=== PATIENT | female | born 1945 | race Caucasian/White ===

== ENCOUNTER 2017-01-24 21:07 | Emergency (ER) | payer BC, MEDICAID ==
[~2017-01-24] VITALS: Ht 160 cm; Wt 64.5 kg
[~2017-01-24 21:07] MED LIST: ASPI81TA3 PO; HTN MED
[2017-01-24 21:11] VITALS: Ht 160 cm; Wt 64.5 kg
--- NOTE | 2017-01-24 22:17 | ERD ---
ER Documentation Chief Complaint Date/Time DATE: 01/24/17 TIME: 22:12 Chief Complaint mechanical fall earlier today;pain on left forearm(pt has brace on left arm HPI this right handed today 0900m am while cooking black beans in a pressure cooker , pot fell over and exploded, pt reports sliping in the water and hitting her head and and falling onto left wrist denies LOC, change in vision or change in behavior left wrist obvious deformity , pain 8-10/10 on pain scale. symptoms worse in dependent position . pt took IBU ROS All systems reviewed and are negative except as per history of present illness. Medications Home Meds Active Scripts Hydrocodone/Acetaminophen ([place] 5-325 Tablet) 1 Each Tablet, 1 TAB PO Q6H Y for PAIN, #14 TAB Prov:GIANCARLONOE 01/25/17 Reported Medications [Htn Med] No Conflict Check, DAILY 01/18/12 Aspirin* (Aspirin* Chew) 81 Mg Tab.chew, 81 MG PO DAILY 01/18/12 Allergies Allergies: Coded Allergies: No Known Allergy (Unverified , 01/24/17) PMhx/Soc History of Surgery: Yes (, RT EYE) Anesthesia Reaction: No Hx Neurological Disorder: No Hx Respiratory Disorders: No Hx Cardiac Disorders: Yes (HTN) Hx Psychiatric Problems: No Hx Miscellaneous Medical Probl: No (OSTEOPORSIS/OA) Hx Alcohol Use: No Hx Substance Use: No Hx Tobacco Use: No Smoking Status: Never smoker Physical Exam Vitals Vital Signs Date Time Temp Pulse Resp B/P Pulse Ox O2 Delivery O2 Flow Rate FiO2 01/24/17 21:11 98.2 91 20 142/85 97 Physical Exam Const: Well-appearing, well-hydrated, obvious discomfort no acute distress Head: Atraumatic Eyes: Normal Conjunctiva, PERRLA, EOMI ENT: Normal External Ears, Nose and Mouth, mucous membranes. Neck: Resp: Respirations even and unlabored no respiratory distress Cardio: Abd: Skin: Back: Upper Extremity -left: Skin: No laceration, or obvious forearm deformity on left Compartments: Soft Motor: Full active range of motion shoulder/elbow, patient able to supinate and pronate with pain, abnormal range of motion Sensation: Intact shoulder/pinky/middle finger/thumb web space Bones: Tender forearm/wrist Snuffbox: Nontender Joints: No effusion Pulses/Perfusion: [3+ radial, Capillary refill < 2 seconds] Neuro: M/S: Alert and oriented Face: EOMI, face and pharynx with normal sensation and function Motor: Normal strength throughout Sensation: Normal sensation throughout Speech: Normal Cerebel: Normal coordination Normal gait DTR: 2+ and symmetric upper/lower extremities Psych: Normal Mood and Affect Results 24 hrs Current Medications Medications (Trade) Dose Ordered Sig/Frank Route PRN Reason Start Time Stop Time Status Last Admin Dose Admin Acetaminophen/ Hydrocodone Bitart ([place] (5/325)) 1 tab ONCE ONCE PO 01/24/17 22:30 01/24/17 22:31 DC 01/24/17 22:27 Procedures/MDM PROCEDURE: XR Left Wrist. CLINICAL INDICATION: Trauma. Pain. TECHNIQUE: AP, lateral and oblique views of the left wrist were performed. COMPARISON: No prior studies are available for comparison. FINDINGS: There is a minimally displaced fracture from the distal diaphysis through the metaphysis of the radius.. There is an ossific density peripheral to the trapezium suggestive of old trauma. There is degenerative changes of the first digit carpal metacarpal joint. Joint relationships are maintained. Bone mineralization is otherwise within normal limits. Soft tissues are unremarkable. IMPRESSION: 1. Minimally displaced distal radial diaphyseal-metaphyseal fracture.. 2. Degenerative changes first digit carpometacarpal joint with adjacent soft tissue calcification, suggesting prior trauma. Electronically viewed and signed by .Soham Saenz MD, MD on 01/25/2017 00:04 PROCEDURE: Left forearm CLINICAL INDICATION: Pain status post fall TECHNIQUE: AP and lateral films COMPARISON: None available FINDINGS: The appearance of a cortical buckling impaction type, closed fracture of the left distal radius is noted without evidence for displacement of fracture fragments. Generalized osteopenia is noted. Degenerative changes are noted of the trapezium and first metacarpal joint . Mild soft tissue swelling is present without radiodense foreign bodies. IMPRESSION: 1. Acute, closed, impaction type fracture of the left distal radius. 2. Generalized osteopenia 3. Osteoarthritis as noted above. Electronically viewed and signed by .Roslyn Mcneill MD, MD on 01/25/2017 00: 04 This pleasant 71-year-old female presents to emergency department after mechanical slip and fall in kitchen. Patient reportedly slipped after her pressure cooker full of black beans exploded onto the floor. Patient reports left wrist pain. Injury occurred early this morning. Patient reports possibly hitting her head without loss of consciousness. Without change in vision, behavior or headache CAT scan will not be ordered. No suspicion for intracranial bleed, subdural hematoma. Patient treated with [place], x-ray findings support 1. Acute, closed, impaction type fracture of the left distal radius. 2. Generalized osteopenia. Patient is placed in a sugar tong splint, sling, prescription for [place]. This case discussed with supervising physician Dr. Sam, patient will follow-up with primary catering assistant. [facility] [place] given. Return to emergency department for numbness or tingling to fingers. Pain worse with splint. I feel the patient is stable for discharge at this time. I have discussed results, examination findings, the treatment plan with the patient and family present prior to discharge. Indications for emergent reevaluation, side effects of medication were also discussed. All questions were answered. Patient verbalizes understanding and agrees with plan of care. Departure Diagnosis: Primary Impression: Radial fracture Encounter type: initial encounter Radius location: distal Fracture type: closed Fracture morphology: unspecified fracture morphology Laterality: left Qualified Code: S52.502A - Closed fracture of distal end of left radius, unspecified fracture morphology, initial encounter Condition: Good Patient Instructions: Leg or Arm Fractures Additional Instructions: Thank you for for coming to [facility] for your care today. Please ask your nurse or provider if you have questions about your care today and do not leave until all your questions have been answered. Please use any medications given as directed and follow-up with your doctor (or the doctor you were referred to) in the next 2-3 days. If you do not have a primary care doctor you may follow up [place] the [facility] [place] (listed below). You may also use motrin and tylenol as needed for fever and/or pain unless instructed otherwise by your provider or nurse. Indications for more urgent follow-up have been discussed, but you may return to the Emergency Department at ANY time for any worrisome or worsening symptoms. If you have abdominal pain, please know that no test or exam you received is perfect and you should follow up within 8 hours for continued pain. If you had any imaging studies today, such as an X-Ray or CT Scan, these studies will be reviewed later by a radiologist. You will be called if there are important findings that were not identified today, so make sure the contact information you provided at registration is correct. If you received any narcotic pain control medicine today, such as Vicodin, Morphine or Dilaudid, your coordination and judgment may be affected for a number of hours. Please do not drive or operate heavy machinery, and you may want someone to assist you at home. If you were given a prescription for narcotic medication, be aware that it is very addictive- use sparingly and only if necessary. NOE MONDRAGON Jan 24, 2017 22:17
[2017-01-24] MEDS ORDERED: HYDROCODONE/APAP (5/325) TAB PO ONE (22:30)
--- NOTE | 2017-01-25 00:04 | RADRPT ---
PROCEDURE: Left forearm CLINICAL INDICATION: Pain status post fall TECHNIQUE: AP and lateral films COMPARISON: None available FINDINGS: The appearance of a cortical buckling impaction type, closed fracture of the left distal radius is n oted without evidence for displacement of fracture fragments. Generalized osteopenia is noted. Deg enerative changes are noted of the trapezium and first metacarpal joint . Mild soft tissue swelling is present without radiodense foreign bodies. IMPRESSION: 1. Acute, closed, impaction type fracture of the left distal radius. 2. Generalized osteopenia 3. Osteoarthritis as noted above. RPTAT: HDC .Roslyn Mcneill MD, MD Date Time Electronically viewed and signed by .Roslyn Mcneill MD, on 01/25/2017 00:04 .C/
--- NOTE | 2017-01-25 00:05 | RADRPT ---
PROCEDURE: XR Left Wrist. CLINICAL INDICATION: Trauma. Pain. TECHNIQUE: AP, lateral and oblique views of the left wrist were performed. COMPARISON: No prior studies are available for comparison. FINDINGS: There is a minimally displaced fracture from the distal diaphysis through the metaphysis of the radi us.. There is an ossific density peripheral to the trapezium suggestive of old trauma. There is deg enerative changes of the first digit carpal metacarpal joint. Joint relationships are maintained. B one mineralization is otherwise within normal limits. Soft tissues are unremarkable. IMPRESSION: 1. Minimally displaced distal radial diaphyseal-metaphyseal fracture.. 2. Degenerative changes first digit carpometacarpal joint with adjacent soft tissue calcification, suggesting prior trauma. RPTAT: HMVK .Soham Saenz MD, Date Time Electronically viewed and signed by .Soham Saenz MD, on 01/25/2017 00:04 .K/
[2017-01-25] MEDS ORDERED: HYDR-906 PO (00:37)
[2017-01-25 01:02] VITALS: BP 150/86; PULSE 68; RESP 20
== END 2017-01-25 01:04 | disposition home or self-care (01) ==
LOC: FTE 21:07
DX: S52.502A Unspecified fracture of the lower end of left radius, initial encounter for closed fracture (principal); I10 Essential (primary) hypertension; W01.198A Fall on same level from slipping, tripping and stumbling with subsequent striking against other object, initial encounter; Y92.9 Unspecified place or not applicable; Z79.82 Long term (current) use of aspirin
CPT/HCPCS: 29125; 73090; 73110; Z7610